=== PATIENT | female | born 1940 | race Caucasian/White ===

== ENCOUNTER → 2023-11-27 | Outpatient (CLI) | payer MEDICARE, BC | LOC: M RAD 14:35 | PROVIDERS: ATTEND Internal Medicine Cardiovascular Disease | DX: T85.698A Other mechanical complication of other specified internal prosthetic devices, implants and grafts, initial encounter (principal); Y83.1 Surgical operation with implant of artificial internal device as the cause of abnormal reaction of the patient, or of later complication, without mention of misadventure at the time of the procedure; K59.00 Constipation, unspecified; I87.8 Other specified disorders of veins; Z95.0 Presence of cardiac pacemaker ==